=== PATIENT | female | born 1950 | race Two or more races ===

== ENCOUNTER 2024-10-06 15:26 | Inpatient (IN) | payer OTHER ==
[~2024-10-06] VITALS: Ht 165.1 cm; Wt 80.5 kg
--- NOTE | 2024-10-06 15:47 | ED.PDOC ---
GI ASSESSMENT HPI Comments 74 year old female with history of hypertension, hypothyroid and dementia BIBA, presents to the ED with chief complaint of N/V/D. Patient reports that she has been experiencing diarrhea for the past 2 weeks along with associated nausea and vomiting today while at the hair salon. Patient states she felt extremely weak while at the hair salon and had to put her head down. Salon staff called 911. EMS states that the patient's HR was noted to be 42 and BP 102/61, however, Fire Dept decided to externally pace the patient, which the patient stated was causing chest pain, however patient states she did not have chest pain prior to being paced. Patient notes that for the past 2 hours she has had generalized weakness. Patient denies any hematemesis, rectal bleeding, chest pain once external pacing was discontinued, SOB, fever, chills, dysuria, or hematuria. Chief Complaint: Nausea/Vomiting Time Seen by MD: 15:46 Reviewed Notes: Nurses Notes, Medications, Allergies Allergies: Coded Allergies: NO KNOWN ALLERGIES (Unverified , 10/06/24) Information Source: Patient, Emergency Med Personnel Mode of Arrival: EMS Timing: Days Duration: Since onset Prehospital treatment: None Quality: None Vomitus: Watery Stool: Watery Severity: Moderate Recent: None Recent Hx of: None Pain Location: None Associated sign and symptoms: Nausea, Vomiting, Diarrhea Past Medical History PAST MEDICAL HISTORY: Dementia, Depression, HTN, Thyroid Surgical History: Cholecystectomy Surgical History (Other): Lt arm surgery INSPECTOR PROCESS History: Denies all INSPECTOR PROCESS Hx Family History Family History: Reviewed,noncontributory to illness Social History Smoker: Non-Smoker Alcohol: Denies ETOH Use Drugs: Denies Drug Use Lives In: Home Constitutional: reports: weakness; denies: chills, diaphoresis, fatigue, fever, malaise, sweats, others EENTM: denies: blurred vision, double vision, ear bleeding, ear discharge, ear drainage, ear pain, ear ringing, eye pain, eye redness, hearing loss, mouth pain, mouth swelling, nasal discharge, nose bleeding, nose congestion, nose pain, photophobia, tearing, throat pain, throat swelling, voice changes, others Respiratory: denies: cough, hemoptysis, orthopnea, SOB at rest, shortness of breath, SOB with excertion, stridor, wheezing, others Cardiovascular: denies: chest pain, dizzy spells, diaphoresis, Dyspnea on exertion, edema, irregular heart beat, left arm pain, lightheadedness, palpitations, PND, syncope, others Gastrointestinal: reports: diarrhea, nausea, vomiting; denies: abdomen distended, abdominal pain, blood streaked bowels, constipated, dysphagia, difficulty swallowing, hematemesis, melena, poor appetite, poor fluid intake, rectal bleeding, rectal pain, others Genitourinary: denies: abnormal vagina bleeding, burning, dyspareunia, dysuria, flank pain, frequency, hematuria, incontinence, pain, , vagina discharge, urgency, others Neurological: denies: dizziness, fainting, headache, left sided numbness, left sided weakness, numbness, paresthesia, pre-existing deficit, right sided numbness, right sided weakness, seizure, speech problems, tingling, tremors, weakness, others Musculoskeletal: denies: back pain, gout, joint pain, joint swelling, muscle pain, muscle stiffness, neck pain, others Integumetry: denies: bruises, change in color, change in hair/nails, dryness, laceration, lesions, lumps, rash, wounds, others Allergic/Immunocompromised: denies: Difficulty Healing, Frequent Infections, Hives, Itching, others Hematologic/Lymphatic: denies: anemia, blood clots, easy bleeding, easy bruising, swollen glands, others Endocrine: denies: excessive hunger, excessive sweating, excessive thirst, excessive urination, flushing, intolerance to cold, intolerance to heat, unexplained weight gain, unexplained weight loss, others Psychiatric: denies: anxiety, bipolar disorder, depression, hopeless, panic disorder, schizophrenia, sleepless, suicidal, others All Other Systems: Reviewed and Negative Physical Exam General Appearance: Other (Ill-appearing) HEENT: Other (Pupils and face symmetric. Dry mucous membranes.) Neck: Full Range of Motion, Normal Inspection Respiratory: Lungs Clear, No Accessory Muscle Use, No Respiratory Distress, Normal Breath Sounds Cardiovascular: Bradycardia, No Edema, No JVD Breast Exam: Deferred Gastrointestinal: Non Tender, Soft Genitalia: Deferred Pelvic: Deferred Rectal: Deferred Extremities: Normal inspection, Normal range of motion, Non-tender, No pedal edema Neurologic: Alert (Oriented x4. Appropriately conversant.), Other (Moves all extremities.) Cerebellar Function: NOT DONE Reflexes: NOT DONE Skin: Dry, Pallor, Other (Cool) Lymphatic: NOT DONE EKG EKG : Comments Sinus rhythm, rate 61, normal [place] interval, QRS prolonged at 131, QTC prolonged at 490, normal axis, possible incomplete right bundle-branch block, nonspecific T change. Was a procedure done? Was a procedure done?: No GI differential Dx Differential Diagnosis: Angina/RI, Diverticular disease, Gastritis/PUD, Gastroenteritis, Inflammatory BD, Ischemic Bowel, UTI, Dehydration, Electrolyte Imbalance, Food Poisoning, Bacterial, Viral, Hypovolemia, Renal Failure, Other (arrythmia, among others) X-Ray, Labs, Meds, VS Vital Signs Date Time Temp Pulse Resp B/P (MAP) Pulse Ox O2 Delivery O2 Flow Rate FiO2 10/06/24 20:29 61 10/06/24 20:00 69 10/06/24 20:00 97.9 64 19 127/73 (91) 93 97.9 10/06/24 19:00 47 18 96 Room Air* 0 21 10/06/24 18:00 64 25 139/64 (89) 95 10/06/24 15:58 47 16 103/61 (75) 93 10/06/24 15:58 47 16 93 Room Air* 0 21 10/06/24 15:39 98.9 43 16 106/66 (79) 98 98.9 Lab Test 10/06/24 18:44 10/06/24 18:03 10/06/24 16:53 Range/Units Troponin I High Sensitivity 5 5 </=34 ng/L Urine Color Colorless Yellow Urine Clarity Clear Clear Urine pH 7.0 5.0-9.0 Urine Specific Transfer 1.008 1.001-1.035 Urine Protein Negative Negative Urine Ketones Negative Negative Urine Blood Negative Negative /uL Urine Nitrite Negative Negative Urine Bilirubin Negative Negative Urine Urobilinogen Normal Negative mg/dL Urine Leukocyte Esterase Negative Negative /uL Urine RBC 1 0 - 4 /hpf Urine Microscopic WBC 5 0-5 /HPF Urine Squamous Epithelial Cells None seen <5 /hpf Urine Bacteria None seen None Seen /hpf Urine Glucose Normal Normal mg/dL White Blood Count 6.0 4.4-10.8 10^3/uL Red Blood Count 4.57 4.0-5.20 10^6/uL Hemoglobin 14.1 12.2-16.2 g/dL Hematocrit 41.7 36.0-46.0 % Mean Corpuscular Volume 91.1 80.0-100.0 fL Mean Corpuscular Hemoglobin 30.8 28.0-32.0 pg Mean Corpuscular Hemoglobin Concent 33.8 32.0-36.0 g/dL Red Cell Distribution Width 13.4 11.8-14.3 % Platelet Count 235 140-450 10^3/uL Mean Platelet Volume 8.0 6.9-10.8 fL Neutrophils (%) (Auto) 81.3 H 37.0-80.0 % Lymphocytes (%) (Auto) 12.1 10.0-50.0 % Monocytes (%) (Auto) 5.3 0.0-12.0 % Eosinophils (%) (Auto) 0.9 0.0-7.0 % Basophils (%) (Auto) 0.4 0.0-2.0 % Neutrophils # (Auto) 4.9 1.6-8.6 10 ^3/uL Lymphocytes # (Auto) 0.7 0.4-5.4 10 ^3/uL Monocytes # (Auto) 0.3 0-1.3 10 ^3/uL Eosinophils # (Auto) 0.1 0-0.8 10 ^3/uL Basophils # (Auto) 0 0-0.2 10 ^3/uL Nucleated Red Blood Cells 0.1 % Sodium Level 139 136-145 mmol/L Potassium Level 3.2 L 3.5-5.1 mmol/L Chloride Level 102 98-107 mmol/L Carbon Dioxide Level 27 20-31 mmol/L Anion Gap 10 5-15 Blood Urea Nitrogen 20 9-23 mg/dL Creatinine 1.32 H 0.550-1.02 mg/dL Glomerular Filtration Rate Calc 43 >90 mL/min BUN/Creatinine Ratio 15.2 10.0-20.0 Serum Glucose 89 74-106 mg/dL Calcium Level 9.6 8.7-10.4 mg/dL Total Bilirubin 0.5 0.2-1.0 mg/dL Aspartate Amino Transferase (AST) 20 13-40 U/L Alanine Aminotransferase (ALT) 20 7-40 U/L Alkaline Phosphatase 84 46-116 U/L Total Protein 7.1 5.7-8.2 g/dL Albumin 4.6 3.2-4.8 g/dL Current Medications Medications (Trade) Dose Ordered Sig/Merary Route Start Time Stop Time Status Last Admin Sodium Chloride 1,000 ml @ 1,000 mls/hr Q1H ONCE IV 10/06/24 15:45 10/06/24 16:44 DC 10/06/24 16:53 Ondansetron HCl (Zofran) 4 mg ONCE ONCE IV 10/06/24 15:45 10/06/24 15:53 DC 10/06/24 16:53 Pantoprazole Sodium (Protonix) 40 mg ONCE ONCE IV 10/06/24 15:45 10/06/24 15:53 DC 10/06/24 16:53 Acetaminophen (Tylenol Tablet) 650 mg ONCE ONCE PO 10/06/24 17:15 10/06/24 17:16 DC 10/06/24 17:19 CT Abd/Pel: 1. Gallbladder has been surgically removed. 2. 2 cm cyst left kidney 3. No nephrolithiasis or hydronephrosis 4. No CT findings of bowel obstruction Chest XR: IMPRESSION: No acute intrathoracic abnormality. X-Ray, Labs, Meds, VS Comment Blood pressure is 139/65 74-year-old female with a history of hypertension, dementia and thyroid disease brought in by EMS complaining of diarrhea for 2 weeks, nausea, vomiting and generalized weakness today, and found to be bradycardic by EMS Vitals remarkable for heart rate 43 Exam remarkable for pallor and general ill appearance Rhythm strip independently interpreted by me: Sinus rhythm, rate 43, no ectopy. Chest x-ray and CT abdomen and pelvis unremarkable CBC unremarkable, metabolic panel remarkable for potassium 3.2, creatinine 1.32, UA unremarkable, troponin negative Patient treated with the following in the ED: 1 L 0.9 normal saline IV bolus, Zofran 4 mg IV, Protonix 40 mg IV, Tylenol 650 mg p.o. for headache, potassium effervescent 50 mEq p.o. On re-evaluation, heart rate is 64 and blood pressure is 139/64. Patient states she feels somewhat better. Plan is to admit the patient for IV hydration, emesis control and Cardiology evaluation. Time of 1ST Reevaluation: 16:46 Reevaluation 1ST: Improved Patient Education/Counseling: Diagnosis, Treatment Family Education/Counseling: No Family Present Additional Information -Reviewed patient's previous visit(s): None - The following tests were ordered, and results were reviewed by me: CBC, CMP, Troponin, EKG, CT Abd/Pel, CXR - Additional information was gathered from interviewing the following independe nt Historian: EMS - I reviewed and agreed with the following test results read by other provider: CT Abd/Pel, CXR - I discussed treatments and results with medical personnel and: patient Comprehensive systems review obtained and negative except for what is stated in the HPI. Departure 1 Departure Time of Disposition: 19:07 Impression: Primary Impression: Vomiting and diarrhea Additional Impressions: Hypokalemia Dehydration Symptomatic bradycardia Disposition: ADMITTED INPATIENT Admit to: Tele Condition: Guarded Critical Care Note Critical Care Time?: No Stability Stability form required: No Heart Score Heart Score: Heart Score Response (Comments) Value History N/A 0 EKG N/A 0 Age N/A 0 Risk Factors N/A 0 Troponin N/A 0 Total 0 I personally scribed for BHAVYA POZO MD ([email or web address]) on 10/06/24 at 15:47. Electronically submitted by Deven Garcia ([email or web address]). I personally scribed for BHAVYA POZO MD ([email or web address]) on 10/06/24 at 15:51. Electronically submitted by Deven Garcia ([email or web address]). I personally scribed for BHAVYA POZO MD ([email or web address]) on 10/06/24 at 17:17. Electronically submitted by Deven Garcia ([email or web address]). BHAVYA POZO MD Oct 06, 2024 15:47
[2024-10-06 15:58] VITALS: PULSE 47; RESP 16; O2SAT 93
--- NOTE | 2024-10-06 16:49 | DVH ---
Exam: CT CT AB PEL WO CON-NO ORAL OR IV History: n/v/d Comparison Study: None available at time of dictation. TECHNIQUE: Multidetector CT of the abdomen was performed from lung bases to pubic symphysis. Imaging was performed without IV contrast. Axial, coronal and sagittal multiplanar reformats were obtained fr om the axial data set by the technologist. Radiation Dose Information: CT Dose: CTDI volume is 8.86 mGy. Dose-length product is 456.98 mGy*cm FINDINGS: Evaluation of solid organs is limited due to lack of intravenous contrast use. Findings: Lung Bases: No acute or significant lung base finding. Normal heart size. No pleural or pericardial effusion. Liver: The liver is normal in size. No focal lesions. Gallbladder and Biliary Tree: Gallbladder has been surgically removed. Spleen: Unremarkable Pancreas: The pancreas is grossly normal in appearance. Adrenal Glands: Unremarkable Kidneys: Kidneys are grossly normal without calculi or hydronephrosis. 2.2 cm cyst cortex left kidney Bladder: Grossly unremarkable for degree of distention. Bowel: The stomach is grossly normal in appearance. Small bowel and colon are normal in caliber and d istribution. The appendix is not visualized; however, no secondary findings of acute appendicitis id entified. Ascites: Absent Lymphadenopathy: No mesenteric, retroperitoneal or periportal lymphadenopathy. Abdominal Wall and Mesentery: Unremarkable. Vasculature: The visualized abdominal aorta is normal in size and caliber. Evaluation of abdominal a nd pelvic vessels is limited due to lack of intravenous contrast. Pelvic Organs: Unremarkable Musculoskeletal: No aggressive focal bony lesions, acute fractures or dislocation. Soft tissues: Unremarkable IMPRESSION: 1. Gallbladder has been surgically removed. 2. 2 cm cyst left kidney 3. No nephrolithiasis or hydronephrosis 4. No CT findings of bowel obstruction Radiation optimization: All CT scans at this facility use at least one of these dose optimization te chniques: automated exposure control mA and/or kV adjustment per patient size (includes targeted exa ms where dose is matched to clinical indication) or iterative reconstruction.
[2024-10-06] MEDS: SODIUM CHLORIDE 0.9% 1,000 ML IV ONE (16:53)
[2024-10-06] MEDS: PANTOPRAZOLE 40 MG/10 ML VIAL INJ IV ONE (16:53)
[2024-10-06] MEDS: ONDANSETRON HCL 4 MG/2 ML VIAL IV ONE (16:53)
--- NOTE | 2024-10-06 17:00 | DVH ---
XY CHEST PORTABLE, HISTORY: bradycardia COMPARISON: None None TECHNICAL DATA: 1 view of the chest was obtained. FINDINGS: Lines and tubes: None Cardiomediastinal silhouette: normal Pulmonary vasculature: normal Lung expansion: normal Lung airspace: normal Lung interstitium: normal Pleura: normal Pneumothorax: no Bones: Unremarkable Other: no IMPRESSION: No acute intrathoracic abnormality.
[2024-10-06 17:12] LABS: Basophils # (auto) 0 10 ^3/uL (0-0.2); Basophils % (auto) 0.4 % (0.0-2.0); Eosinophils # (auto) 0.1 10 ^3/uL (0-0.8); Eosinophils % (auto) 0.9 % (0.0-7.0); Hematocrit 41.7 % (36.0-46.0); Hemoglobin 14.1 g/dL (12.2-16.2); Lymphocytes # (auto) 0.7 10 ^3/uL (0.4-5.4); Lymphocytes % (auto) 12.1 % (10.0-50.0); Mean Corpuscular Hemoglobin 30.8 pg (28.0-32.0); Mean Corpuscular Hgb Conc. 33.8 g/dL (32.0-36.0); Mean Corpuscular Volume 91.1 fL (80.0-100.0); Monocytes # (auto) 0.3 10 ^3/uL (0-1.3); Monocytes % (auto) 5.3 % (0.0-12.0); Neutrophils # (auto) 4.9 10 ^3/uL (1.6-8.6); Neutrophils % (auto) 81.3 % (37.0-80.0); Nucleated Red Blood Cells % 0.1 %; Platelet Count (auto) 235 10^3/uL (140-450); Red Blood Cells 4.57 10^6/uL (4.0-5.20); Red Cell Distribution Width 13.4 % (11.8-14.3)
[2024-10-06] MEDS: ACETAMINOPHEN 325 MG TAB PO ONE (17:19)
[2024-10-06 17:46] LABS: Alanine Aminotransferase 20 U/L (7-40); Albumin 4.6 g/dL (3.2-4.8); Alkaline Phosphatase 84 U/L (46-116); Anion Gap 10 (5-15); Aspartate Aminotransferase 20 U/L (13-40); BUN/Creatinine Ratio 15.2 (10.0-20.0); Blood Urea Nitrogen 20 mg/dL (9-23); Calcium 9.6 mg/dL (8.7-10.4); Carbon Dioxide 27 mmol/L (20-31); Chloride 102 mmol/L (98-107); Glucose 89 mg/dL (74-106); Sodium 139 mmol/L (136-145); Total Protein 7.1 g/dL (5.7-8.2)
[2024-10-06 17:47] LABS: Bilirubin, Total 0.5 mg/dL (0.2-1.0)
[2024-10-06 17:53] LABS: Potassium 3.2 mmol/L (3.5-5.1)
[2024-10-06 18:18] LABS: Urine Bacteria None Seen /hpf (None Seen)
[2024-10-06 18:31] LABS: Urine Blood Negative /uL (Negative); Urine Clarity Clear (Clear); Urine Color Colorless (Yellow); Urine Protein, UAD Negative (Negative); Urine Specific Gravity 1.008 (1.001-1.035); Urine Squamous Epithelial Cell None Seen /hpf (<5); Urine Urobilinogen Normal (Negative)
[2024-10-06 18:48] LABS: Urine WBC 5 /HPF (0-5)
[2024-10-06 19:00] VITALS: PULSE 47; RESP 18; O2SAT 96
[2024-10-06] MEDS: POTASSIUM EFFERVESENT TAB 25 MEQ PO ONE (21:42)
[2024-10-06] MEDS ORDERED: MORPHINE SULFATE INJ 2 MG/ml SYRG IV PRN (22:00)
[2024-10-06] MEDS ORDERED: NITROGLYCERIN 0.4 MG SL TAB SL PRN (22:00)
--- NOTE | 2024-10-06 22:09 | DVHHP2 ---
History of Present Illness Reason for Visit: Syncope History of Present Illness 74-year-old female presents for evaluation of syncopal episode. Patient reports being at the hair salon when she had multiple episodes of vomiting. Patient subsequently had a syncopal episode. When EMS arrived she was bradycardic and was externally paced on her way to the emergency department. Patient is currently in normal sinus rhythm between 60-70 beats per minute. She soft the external pacemaker. Denies chest pain or palpitations. No headache. No shortness a breath. Patient is not nauseous at the moment. Past Medical History Hypothyroid, hypertension, dementia, depression Past Surgical History Cholecystectomy Family History Noncontributory Smoke: No ALCOHOL: none Drugs: None Lives: with Family Review of Systems Review of Systems Review of systems are currently negative otherwise addressed in HPI. Allergies: Coded Allergies: NO KNOWN ALLERGIES (Unverified , 10/06/24) Exam Vital Signs Vital Signs Date Time Temp Pulse Resp B/P (MAP) Pulse Ox O2 Delivery O2 Flow Rate FiO2 10/06/24 20:29 61 10/06/24 20:00 97.9 19 127/73 (91) 93 97.9 10/06/24 19:00 Room Air* 0 21 Exam Gen: 74-year-old female in no apparent distress Skin: Warm, dry, normal color and texture, no rash. HEENT: Normocephalic atraumatic, mucous membranes moist and pink. Neck: Cervical and supraclavicular nodes normal without enlargement, trachea is midline, thyroid gland is normal without masses. Pulmonary: Clear to auscultation and percussion bilaterally. Cardiac: Regular rate and rhythm. No murmur Abdomen: Soft, nontender, nondistended, bowel sounds present all 4 quadrants, no guarding, no rigidity, no organomegaly. Extremities: No cyanosis, clubbing, no edema Neuro: Cranial nerves II through XII grossly intact, normal affect and speech, no focal motor deficits. Labs/Xrays ORDERING PHYSICIAN: BHAVYA POZO MD PROCEDURE(s): ABPL - CT AB PEL WO CON-NO ORAL OR IV REASON: n/v/d ORDER NUMBER(s): [id number], ACCESSION NUMBER(s): [id number] Exam: CT CT AB PEL WO CON-NO ORAL OR IV History: n/v/d Comparison Study: None available at time of dictation. TECHNIQUE: Multidetector CT of the abdomen was performed from lung bases to pubic symphysis. Imaging was performed without IV contrast. Axial, coronal and sagittal multiplanar reformats were obtained from the axial data set by the technologist. Radiation Dose Information: CT Dose: CTDI volume is 8.86 mGy. Dose-length product is 456.98 mGy*cm FINDINGS: Evaluation of solid organs is limited due to lack of intravenous contrast use. Findings: Lung Bases: No acute or significant lung base finding. Normal heart size. No pleural or pericardial effusion. Liver: The liver is normal in size. No focal lesions. Gallbladder and Biliary Tree: Gallbladder has been surgically removed. Spleen: Unremarkable Pancreas: The pancreas is grossly normal in appearance. Adrenal Glands: Unremarkable Kidneys: Kidneys are grossly normal without calculi or hydronephrosis. 2.2 cm cyst cortex left kidney Bladder: Grossly unremarkable for degree of distention. Bowel: The stomach is grossly normal in appearance. Small bowel and colon are normal in caliber and distribution. The appendix is not visualized; however, no secondary findings of acute appendicitis identified. Ascites: Absent Lymphadenopathy: No mesenteric, retroperitoneal or periportal lymphadenopathy. Abdominal Wall and Mesentery: Unremarkable. Vasculature: The visualized abdominal aorta is normal in size and caliber. Evaluation of abdominal and pelvic vessels is limited due to lack of intravenous contrast. Pelvic Organs: Unremarkable Musculoskeletal: No aggressive focal bony lesions, acute fractures or dislocation. Soft tissues: Unremarkable IMPRESSION: 1. Gallbladder has been surgically removed. 2. 2 cm cyst left kidney 3. No nephrolithiasis or hydronephrosis 4. No CT findings of bowel obstruction Radiation optimization: All CT scans at this facility use at least one of these dose optimization techniques: automated exposure control mA and/or kV adjustment per patient size (includes targeted exams where dose is matched to clinical indication) or iterative reconstruction. RING PHYSICIAN: BHAVYA POZO MD PROCEDURE(s): CXRP - CHEST PORTABLE REASON: bradycardia ORDER NUMBER(s): [id number], ACCESSION NUMBER(s): [id number] XY CHEST PORTABLE, HISTORY: bradycardia COMPARISON: None None TECHNICAL DATA: 1 view of the chest was obtained. FINDINGS: Lines and tubes: None Cardiomediastinal silhouette: normal Pulmonary vasculature: normal Lung expansion: normal Lung airspace: normal Lung interstitium: normal Pleura: normal Pneumothorax: no Bones: Unremarkable Other: no IMPRESSION: No acute intrathoracic abnormality. ATED BY: KASH CAROLINA MD Labs Test 10/06/24 18:44 10/06/24 18:03 10/06/24 16:53 Range/Units Troponin I High Sensitivity 5 </=34 ng/L Urine Color Colorless Yellow Urine Clarity Clear Clear Urine pH 7.0 5.0-9.0 Urine Specific [place] 1.008 1.001-1.035 Urine Protein Negative Negative Urine Ketones Negative Negative Urine Blood Negative Negative /uL Urine Nitrite Negative Negative Urine Bilirubin Negative Negative Urine Urobilinogen Normal Negative mg/dL Urine Leukocyte Esterase Negative Negative /uL Urine RBC 1 0 - 4 /hpf Urine Microscopic WBC 5 0-5 /HPF Urine Squamous Epithelial Cells None seen <5 /hpf Urine Bacteria None seen None Seen /hpf Urine Glucose Normal Normal mg/dL White Blood Count 6.0 4.4-10.8 10^3/uL Red Blood Count 4.57 4.0-5.20 10^6/uL Hemoglobin 14.1 12.2-16.2 g/dL Hematocrit 41.7 36.0-46.0 % Mean Corpuscular Volume 91.1 80.0-100.0 fL Mean Corpuscular Hemoglobin 30.8 28.0-32.0 pg Mean Corpuscular Hemoglobin Concent 33.8 32.0-36.0 g/dL Red Cell Distribution Width 13.4 11.8-14.3 % Platelet Count 235 140-450 10^3/uL Mean Platelet Volume 8.0 6.9-10.8 fL Neutrophils (%) (Auto) 81.3 H 37.0-80.0 % Lymphocytes (%) (Auto) 12.1 10.0-50.0 % Monocytes (%) (Auto) 5.3 0.0-12.0 % Eosinophils (%) (Auto) 0.9 0.0-7.0 % Basophils (%) (Auto) 0.4 0.0-2.0 % Neutrophils # (Auto) 4.9 1.6-8.6 10 ^3/uL Lymphocytes # (Auto) 0.7 0.4-5.4 10 ^3/uL Monocytes # (Auto) 0.3 0-1.3 10 ^3/uL Eosinophils # (Auto) 0.1 0-0.8 10 ^3/uL Basophils # (Auto) 0 0-0.2 10 ^3/uL Nucleated Red Blood Cells 0.1 % Sodium Level 139 136-145 mmol/L Potassium Level 3.2 L 3.5-5.1 mmol/L Chloride Level 102 98-107 mmol/L Carbon Dioxide Level 27 20-31 mmol/L Anion Gap 10 5-15 Blood Urea Nitrogen 20 9-23 mg/dL Creatinine 1.32 H 0.550-1.02 mg/dL Glomerular Filtration Rate Calc 43 >90 mL/min BUN/Creatinine Ratio 15.2 10.0-20.0 Serum Glucose 89 74-106 mg/dL Calcium Level 9.6 8.7-10.4 mg/dL Total Bilirubin 0.5 0.2-1.0 mg/dL Aspartate Amino Transferase (AST) 20 13-40 U/L Alanine Aminotransferase (ALT) 20 7-40 U/L Alkaline Phosphatase 84 46-116 U/L Total Protein 7.1 5.7-8.2 g/dL Albumin 4.6 3.2-4.8 g/dL Assessment/Plan Assessment/Plan Assessment Symptomatic bradycardia,? Vasovagal Syncope Hypertension Dementia Electrolyte imbalance Plan Admit the patient to telemetry to the hospitalist Echocardiogram pending Replete electrolytes Resume home medications Continue treatment per orders. Plan discussed with: Patient My Orders Orders - JACQUIE JAEGER AGACNP Procedure Category Date Status Time Hydrochlorothiazide PHA 10/07/24 Transmitted Tablet (Hydrochlorot 10:00 Levothyroxine Tablet PHA 10/07/24 Transmitted (Synthroid Tablet) 06:00 Thyroid Stimulating LAB 10/06/24 Transmitted Hormone 22:00 Memantine Tablet PHA 10/07/24 Transmitted (Namenda Tablet) 10:00 Donepezil Tablet PHA 10/06/24 Transmitted (Aricept Tablet) 22:00 Pantoprazole Tablet PHA 10/07/24 Transmitted (Protonix Tablet) 06:00 Admit ADMIT 10/06/24 Transmitted 22:00 Ondansetron Hcl PHA 10/06/24 Transmitted (Zofran) 22:00 Enoxaparin Sodium PHA 10/07/24 Transmitted (Lovenox) 10:00 Cardiac DIET 10/07/24 Transmitted Diet-2gna,Lofat,Lochol Breakfast Echo 2d Mode Cardiac US 10/06/24 Transmitted DOP 22:00 Condition: Fair [facility] 10/06/24 Transmitted 22:00 Acetaminophen Tablet PHA 10/06/24 Transmitted (Tylenol Tablet) 22:00 Bedrest With Bathroom [facility] 10/06/24 Transmitted Privileg 22:00 Nitroglycerin PHA 10/06/24 Transmitted Sublingual (Ntrostat 22:00 Morphine Sulfate PHA 10/06/24 Transmitted Injection 22:00 Stat Ekg For Chest [facility] 10/06/24 Transmitted Pain 22:00 Notify Of Changes [facility] 10/06/24 Transmitted From Base 22:00 Telephone Answerer For [facility] 10/06/24 Transmitted 24 Hours 22:00 Emergency Dysrhythmia [facility] 10/06/24 Transmitted Protocol 22:00 Rhythm Strips Once [facility] 10/06/24 Transmitted Every Shift 22:00 Oxygen By Nasal RT 10/06/24 Transmitted Cannula 22:00 Basic Metabolic Panel LAB 10/07/24 Verified 04:00 Date of Service: Oct 06, 2024 Billing Provider: JACQUIE JAEGER Common Visit Codes: [id number] INP/OBS CARE (HIGH) JACQUIE JAEGER Oct 06, 2024 22:09
[2024-10-06] MEDS: DONEPEZIL HYDROCHLORIDE 5 MG TAB PO SCH (22:56)
[2024-10-07] MEDS: ACETAMINOPHEN 325 MG TAB PO PRN (01:04)
[2024-10-07] MEDS: ONDANSETRON HCL 4 MG/2 ML VIAL IV PRN (01:09)
[2024-10-07 05:41] LABS: Chloride 106 mmol/L (98-107); Potassium 4.1 mmol/L (3.5-5.1); Sodium 142 mmol/L (136-145)
[2024-10-07 05:42] LABS: Anion Gap 7 (5-15); Carbon Dioxide 29 mmol/L (20-31)
[2024-10-07 05:47] LABS: BUN/Creatinine Ratio 15.7 (10.0-20.0); Blood Urea Nitrogen 19 mg/dL (9-23); Glucose 98 mg/dL (74-106)
[2024-10-07] MEDS: PANTOPRAZOLE 40 MG TAB PO SCH (06:06)
[2024-10-07] MEDS: LEVOTHYROXINE SODIUM 50 MCG TAB PO SCH (06:13)
[2024-10-07 08:19] VITALS: PULSE 62; RESP 14; O2SAT 94
[2024-10-07] MEDS: hydroCHLOROthiazide 25 MG TAB PO SCH (11:16)
[2024-10-07] MEDS: MEMANTINE HCL 5 MG TAB PO SCH (11:16)
[2024-10-07] MEDS: ENOXAPARIN SOD 40 MG/0.4 ML SYRINGE SC SCH (11:17)
--- NOTE | 2024-10-07 14:01 | DVHSR ---
APPROVED REPORT EXAM: Two-dimensional and M-mode echocardiogram with Doppler and color Doppler. Blood Pressure: 129/61 mmHg INDICATION bradycardia RISK FACTORS Height: 65, Weight: 175 DIMENSIONS LVDd4.1 (3.8-5.7cm)LA (2D)4.8 (1.9-4.0cm)Aortic Root3.5 (2.0-3.7cm) LVDs2.8 (2.5-4.0cm)LA (MM) (1.9-4.0cm)Aortic Cusp Exc1.7 (1.5-2.0cm) EF (%) 60.0 (55-70%)Rt. Atrium3.8 (1.9-4.0cm)Asc. Aorta cm IVSd1.3 (0.7-1.1cm)RV (D) (1.8-2.4cm) PWd1.3 (0.7-1.1cm) Mitral Valve MitralMitral Stenosis E wave0.87m/sMV Mean GR.mmHg A wave0.86m/sMV Peak GR.104mmHg E/A ratio1.02D MVAcm2 DECEL [id number] 1/2 [id number] IVRTmsDop MVA2.62cm2 Aortic Valve Aortic ValveAortic Stenosis V11.40m/Kartik Mean GR.6mmHg V21.74m/Kartik Peak GR.12mmHg LVOT Diameter2.0 (1.8-2.4cm)Doppler AVA2.53cm2 AI P 1/2 Shcl983.51ms Pulmonic Valve V20.93m/s Tricuspid Valve TR Velocity2.45m/s [id number] Conclusion MILD LVH AND MILD LV DIASTOLIC DYSFUNCTION LV EF IS 65% AND IS NORMAL MODERATELY DILATED LA NORMAL VALVES NO EFFUSION NORMAL RV FUNCTION AND SIZE
--- NOTE | 2024-10-07 14:28 | DVHPNRES ---
Progress Note Date Seen: Oct 07, 2024 Resident Creating Document: SABAS MIRAMONTES RESIDENT Has the PT tested + for MRSA If YES, has PT been informed?: No Medical Necessity Reason Pt with a Central, PICC or Fol: No Subjective Review of Systems 74 year old female with history of hypertension, hypothyroid and dementia BIBA, presents to the ED with chief complaint of nausea, vomiting and diarrhea. Patient reports that she has been experiencing diarrhea for the past 2 weeks along with associated nausea and vomiting yesterday while at the [employer]. Patient states she felt extremely weak while at the [employer] and had to put her head down. Salon staff called 911. EMS states that the patient's HR was noted to be 42 and BP 102/61, however, Fire Dept decided to externally pace the patient, which the patient stated was causing chest pain, however patient states she did not have chest pain prior to being paced. she had generalized weakness. Patient denies any hematemesis, rectal bleeding, chest pain once external pacing was discontinued, SOB, fever, chills, dysuria, or hematuria. Today seen and examined at bedside, no chest pain, feeling better. ECHO: MILD LVH AND MILD LV DIASTOLIC DYSFUNCTION LV EF IS 65% AND IS NORMAL MODERATELY DILATED LA NORMAL VALVES NO EFFUSION NORMAL RV FUNCTION AND SIZE Objective vital signs Vital Sign Date Time Temp Pulse Resp B/P (MAP) Pulse Ox O2 Delivery O2 Flow Rate FiO2 10/07/24 12:00 52 10/07/24 12:00 17 126/64 (84) 92 10/07/24 10:00 98.1 98.1 10/07/24 08:19 Room Air* 0 21 Total Intake and Output 10/06/24 10/06/24 10/07/24 15:00 23:00 07:00 Intake Total 360 ml Output Total 1 ml Balance 360 ml -1 ml medications Current Medications Medications Dose Ordered Sig/Merary Route Start Time Stop Time Status Last Admin Dose Admin Hydrochlorothiazide 25 mg DAILY PO 10/07/24 10:00 10/07/24 11:16 25 MG Levothyroxine Sodium 125 mcg QAM@0600 PO 10/07/24 06:00 10/07/24 06:13 125 MCG Memantine 10 mg DAILY PO 10/07/24 10:00 10/07/24 11:16 10 MG Donepezil HCl 10 mg HS PO 10/06/24 22:00 10/06/24 22:56 10 MG Pantoprazole Sodium 40 mg DAILY@0600 PO 10/07/24 06:00 10/07/24 06:06 40 MG Ondansetron HCl 4 mg Q4HP PRN IV 10/06/24 22:00 10/07/24 01:09 4 MG Enoxaparin Sodium 40 mg DAILY SC 10/07/24 10:00 10/07/24 11:17 40 MG Acetaminophen 650 mg Q6HP PRN PO 10/06/24 22:00 10/07/24 01:04 650 MG Nitroglycerin 0.4 mg Q5MINP PRN SL 10/06/24 22:00 Morphine Sulfate 2 mg Q30M PRN IV 10/06/24 22:00 Examination HEENT: Pupils and face symmetric. Dry mucous membranes Neck: Full Range of Motion, Normal Inspection Respiratory: Lungs Clear, No Accessory Muscle Use, No Respiratory Distress, Normal Breath Sounds Cardiovascular: normal s1 s2, No Edema, No JVD Gastrointestinal: Non Tender, Soft Extremities: Normal inspection, Normal range of motion, Non-tender, No pedal edema Neurologic: Oriented x4. Appropriately conversant, Moves all extremities laboratory and microbiology Laboratory Tests 10/07/24 05:15 10/06/24 16:53 Test 10/07/24 05:15 Range/Units Serum Glucose 98 74-106 mg/dL Problem List/Assessment/Plan Problem List/Assessment/Plan #Bradycardia, resolved #Presyncope #Hypertensive heart disease with diastolic dysfunction #Hypothyroidism #Mild cognitive dysfunction? #Acute gastroenteritis #Hypokalemia resolved Telemetry Tylenol Donepezol Lovenox 40 mg SC Hctz 25MG daily Levothyroxine 125 mcg Memantine 10 mg PO Protonix PO Potassium PO given Case discussed with Dr Gutierrez Plan discussed with: Patient, Other Date of Service: Oct 07, 2024 Billing Provider: ANTHONY GUTIERREZ DO Common Visit Codes: [id number] INP/OBS CARE(HIGH) SABAS MIRAMONTES RESIDENT Oct 07, 2024 14:28 ANTHONY GUTIERREZ DO Oct 08, 2024 07:36
[2024-10-07] MEDS ORDERED: BUPR-349 PO (18:13)
[2024-10-07] MEDS ORDERED: TRAZ-228 PO (18:19)
[2024-10-07] MEDS ORDERED: LEVO125T7 PO (18:19)
[2024-10-07] MEDS ORDERED: PRAM2.252 PO (18:19)
[2024-10-07] MEDS ORDERED: HYDR25TA4 PO ×2 (18:19)
[2024-10-07] MEDS ORDERED: TOLT2CAP PO (18:19)
[2024-10-07] MEDS ORDERED: [UNRECOGNIZED DRUG - CODE] PO (18:19)
[2024-10-07] MEDS ORDERED: DONE1TAB88 PO (18:19)
[2024-10-07] MEDS ORDERED: IRBE300T43 PO (18:19)
[2024-10-07 20:00] VITALS: PULSE 56; PULSE 59; RESP 15
[2024-10-07 21:00] VITALS: BP 117/69; PULSE 54; RESP 18; TEMP 98.2; O2SAT 94
--- NOTE | 2024-10-07 21:18 | DVHINCON2 ---
Date of service: Oct 07, 2024 Referring Physician West Lehman MD Reason for Consultation Acute kidney injury History of Present Illness Kiesha Rock is a 74-year-old female with a Past Medical History pertinent for Hypothyroid, Hypertension, Dementia and Depression who presented to the hospital for evaluation of syncopal episode. Patient states she was at a hair salon when she had multiple episodes of vomiting and subsequently had a syncopal episode. Echocardiogram reported LV EF is 65% and normal; mild LVH and mild LV diastolic dysfunction; moderate dilated LA; no effusion; normal valves. CT Abdomen Pelvis reported gallbladder has been surgically removed; 2 cm cyst left kidney; no nephrolithiasis or hydronephrosis; no CT findings of bowel obstruction. Patient denies any complaints at this time. Reports feeling better. No chest pain, dizziness or shortness of breath. Labs this morning are remarkable for Creatinine 1.21. eGFR 47. Allergies: Coded Allergies: NO KNOWN ALLERGIES (Unverified , 10/06/24) Home Meds Reported Medications Darifenacin Hydrobromide (Darifenacin Hydrobromide) 7.5 Mg Tab, 7.5 MG PO, TAB 10/07/24 Hydrochlorothiazide (Hydrochlorothiazide) 25 Mg Tab, 25 TAB PO DAILY, #30 TAB 5 Refills 10/07/24 Hydrochlorothiazide (Hydrochlorothiazide) 25 Mg Tab, 1 TAB PO DAILY, #30 TAB 5 Refills 10/07/24 Irbesartan (IRBESARTAN) 300 Mg Tab, 300 TAB PO DAILY, #30 TAB 5 Refills 10/07/24 Trazodone Hcl (Trazodone Hcl) 100 Mg Tab, 50 TAB PO QIDACHS, #30 TAB 1 Refill 10/07/24 Levothyroxine Sodium (Levothyroxine Sodium) 125 Mcg Tab, 1 TAB PO DAILY, #30 TAB 5 Refills 10/07/24 Bupropion HCl (Bupropion Hydrochloride) 100 Mg Tab, 150 MG PO BID, TAB 10/07/24 Discontinued Reported Medications Donepezil Hydrochloride (DONEPEZIL HCL) 10 Mg Tab, 1 TAB PO DAILY, #90 TAB 1 Refill 10/07/24 Tolterodine Tartrate (Detrol La) 2 Mg Cap, 2 MG PO, CAP 10/07/24 Pramipexole Dihydrochloride (Pramipexole Dihydrochlori) 2.25 Mg Tab, 0.25 MG PO, TAB 10/07/24 Current Medications Family History: FH: dementia Review of Systems Review of systems are currently negative otherwise addressed in HPI. H&P Exam Vital Signs/I&O Vital Sign Date Time Temp Pulse Resp B/P (MAP) Pulse Ox O2 Delivery O2 Flow Rate FiO2 10/08/24 13:00 98.2 67 17 138/86 (103) 95 98.2 10/08/24 08:00 Room Air* 0 21 Intake and Output 10/07/24 10/08/24 19:00 07:00 Intake Total 300 ml Balance 300 ml Intake Oral 300 ml # Voids 6 Physical Exam Vitals and nursing notes reviewed. Gen: 74-year-old female in no apparent distress HEENT: Normocephalic atraumatic, mucous membranes moist and pink. Neck: Cervical and supraclavicular nodes normal without enlargement,. Pulmonary: Clear to auscultation and percussion bilaterally. Cardiac: Regular rate and rhythm. No murmur Abdomen: Soft, nontender, nondistended, bowel sounds present all 4 quadrants, no guarding, no rigidity, no organomegaly. Extremities: No cyanosis, clubbing, no edema Neuro: Cranial nerves II through XII grossly intact, normal affect and speech, no focal motor deficits. Skin: Warm, dry, normal color and texture, no rash. Labs/Diagnostic Data Labs/Diagnostic Data Laboratory Tests Test 10/08/24 07:22 10/07/24 05:15 10/06/24 18:44 10/06/24 18:03 Range/Units White Blood Count 4.1 #L 4.4-10.8 10^3/uL Red Blood Count 4.20 4.0-5.20 10^6/uL Hemoglobin 13.0 12.2-16.2 g/dL Hematocrit 38.2 36.0-46.0 % Mean Corpuscular Volume 91.1 80.0-100.0 fL Mean Corpuscular Hemoglobin 30.9 28.0-32.0 pg Mean Corpuscular Hemoglobin Concent 33.9 32.0-36.0 g/dL Red Cell Distribution Width 13.5 11.8-14.3 % Platelet Count 200 140-450 10^3/uL Mean Platelet Volume 8.1 6.9-10.8 fL Neutrophils (%) (Auto) 69.2 37.0-80.0 % Lymphocytes (%) (Auto) 20.3 10.0-50.0 % Monocytes (%) (Auto) 7.9 0.0-12.0 % Eosinophils (%) (Auto) 2.1 0.0-7.0 % Basophils (%) (Auto) 0.5 0.0-2.0 % Neutrophils # (Auto) 2.8 1.6-8.6 10 ^3/uL Lymphocytes # (Auto) 0.8 0.4-5.4 10 ^3/uL Monocytes # (Auto) 0.3 0-1.3 10 ^3/uL Eosinophils # (Auto) 0.1 0-0.8 10 ^3/uL Basophils # (Auto) 0 0-0.2 10 ^3/uL Nucleated Red Blood Cells 0.4 % Sodium Level 141 142 136-145 mmol/L Potassium Level 3.9 4.1 3.5-5.1 mmol/L Chloride Level 105 106 98-107 mmol/L Carbon Dioxide Level 30 29 20-31 mmol/L Anion Gap 6 7 5-15 Blood Urea Nitrogen 17 19 9-23 mg/dL Creatinine 1.26 H 1.21 H 0.550-1.02 mg/dL Glomerular Filtration Rate Calc 45 47 >90 mL/min BUN/Creatinine Ratio 13.5 15.7 10.0-20.0 Serum Glucose 106 98 74-106 mg/dL Calcium Level 9.5 9.0 8.7-10.4 mg/dL Total Bilirubin 0.4 0.2-1.0 mg/dL Aspartate Amino Transferase (AST) 15 13-40 U/L Alanine Aminotransferase (ALT) 16 7-40 U/L Alkaline Phosphatase 71 46-116 U/L Total Protein 6.1 5.7-8.2 g/dL Albumin 4.0 3.2-4.8 g/dL Troponin I High Sensitivity 5 </=34 ng/L Thyroid Stimulating Hormone (TSH) 1.68 0.55-4.78 uIU/mL Urine Color Colorless Yellow Urine Clarity Clear Clear Urine pH 7.0 5.0-9.0 Urine Specific [place] 1.008 1.001-1.035 Urine Protein Negative Negative Urine Ketones Negative Negative Urine Blood Negative Negative /uL Urine Nitrite Negative Negative Urine Bilirubin Negative Negative Urine Urobilinogen Normal Negative mg/dL Urine Leukocyte Esterase Negative Negative /uL Urine RBC 1 0 - 4 /hpf Urine Microscopic WBC 5 0-5 /HPF Urine Squamous Epithelial Cells None seen <5 /hpf Urine Bacteria None seen None Seen /hpf Urine Glucose Normal Normal mg/dL Test 10/06/24 16:53 Range/Units White Blood Count 6.0 4.4-10.8 10^3/uL Red Blood Count 4.57 4.0-5.20 10^6/uL Hemoglobin 14.1 12.2-16.2 g/dL Hematocrit 41.7 36.0-46.0 % Mean Corpuscular Volume 91.1 80.0-100.0 fL Mean Corpuscular Hemoglobin 30.8 28.0-32.0 pg Mean Corpuscular Hemoglobin Concent 33.8 32.0-36.0 g/dL Red Cell Distribution Width 13.4 11.8-14.3 % Platelet Count 235 140-450 10^3/uL Mean Platelet Volume 8.0 6.9-10.8 fL Neutrophils (%) (Auto) 81.3 H 37.0-80.0 % Lymphocytes (%) (Auto) 12.1 10.0-50.0 % Monocytes (%) (Auto) 5.3 0.0-12.0 % Eosinophils (%) (Auto) 0.9 0.0-7.0 % Basophils (%) (Auto) 0.4 0.0-2.0 % Neutrophils # (Auto) 4.9 1.6-8.6 10 ^3/uL Lymphocytes # (Auto) 0.7 0.4-5.4 10 ^3/uL Monocytes # (Auto) 0.3 0-1.3 10 ^3/uL Eosinophils # (Auto) 0.1 0-0.8 10 ^3/uL Basophils # (Auto) 0 0-0.2 10 ^3/uL Nucleated Red Blood Cells 0.1 % Sodium Level 139 136-145 mmol/L Potassium Level 3.2 L 3.5-5.1 mmol/L Chloride Level 102 98-107 mmol/L Carbon Dioxide Level 27 20-31 mmol/L Anion Gap 10 5-15 Blood Urea Nitrogen 20 9-23 mg/dL Creatinine 1.32 H 0.550-1.02 mg/dL Glomerular Filtration Rate Calc 43 >90 mL/min BUN/Creatinine Ratio 15.2 10.0-20.0 Serum Glucose 89 74-106 mg/dL Calcium Level 9.6 8.7-10.4 mg/dL Total Bilirubin 0.5 0.2-1.0 mg/dL Aspartate Amino Transferase (AST) 20 13-40 U/L Alanine Aminotransferase (ALT) 20 7-40 U/L Alkaline Phosphatase 84 46-116 U/L Troponin I High Sensitivity 5 </=34 ng/L Total Protein 7.1 5.7-8.2 g/dL Albumin 4.6 3.2-4.8 g/dL Assessment Symptomatic bradycardia Syncope Hypertension Dementia Electrolyte imbalance GUILHERME Plan/Recommendation Agreement with your ongoing assessment and plan of care. Monitor daily labs. Electrolyte replacement prn. Continue home medications as ordered. DVT/GI prophylaxis. Pain management prn. Additional plan as per the hospital course. Plan discussed with: Patient, Other (RN) NISSA DOBBS DO Oct 07, 2024 21:18
[2024-10-08 05:31] VITALS: BP 148/52; PULSE 60; RESP 16; TEMP 97.8; O2SAT 100
[2024-10-08 08:14] LABS: Basophils # (auto) 0 10 ^3/uL (0-0.2); Basophils % (auto) 0.5 % (0.0-2.0); Eosinophils # (auto) 0.1 10 ^3/uL (0-0.8); Eosinophils % (auto) 2.1 % (0.0-7.0); Hematocrit 38.2 % (36.0-46.0); Lymphocytes # (auto) 0.8 10 ^3/uL (0.4-5.4); Lymphocytes % (auto) 20.3 % (10.0-50.0); Mean Corpuscular Hemoglobin 30.9 pg (28.0-32.0); Mean Corpuscular Hgb Conc. 33.9 g/dL (32.0-36.0); Mean Corpuscular Volume 91.1 fL (80.0-100.0); Monocytes # (auto) 0.3 10 ^3/uL (0-1.3); Monocytes % (auto) 7.9 % (0.0-12.0); Neutrophils # (auto) 2.8 10 ^3/uL (1.6-8.6); Neutrophils % (auto) 69.2 % (37.0-80.0); Nucleated Red Blood Cells % 0.4 %; Platelet Count (auto) 200 10^3/uL (140-450); Red Cell Distribution Width 13.5 % (11.8-14.3); White Blood Cell 4.1 10^3/uL (4.4-10.8)
[2024-10-08 08:33] LABS: Alanine Aminotransferase 16 U/L (7-40); Alkaline Phosphatase 71 U/L (46-116); Anion Gap 6 (5-15); BUN/Creatinine Ratio 13.5 (10.0-20.0); Blood Urea Nitrogen 17 mg/dL (9-23); Calcium 9.5 mg/dL (8.7-10.4); Carbon Dioxide 30 mmol/L (20-31); Chloride 105 mmol/L (98-107); Potassium 3.9 mmol/L (3.5-5.1); Sodium 141 mmol/L (136-145); Total Protein 6.1 g/dL (5.7-8.2)
[2024-10-08 08:34] LABS: Aspartate Aminotransferase 15 U/L (13-40)
[2024-10-08 08:35] LABS: Bilirubin, Total 0.4 mg/dL (0.2-1.0)
[2024-10-08 08:52] LABS: Glucose 106 mg/dL (74-106)
[2024-10-08 09:00] VITALS: BP 119/84; PULSE 54; RESP 16; TEMP 98.3; O2SAT 94
--- NOTE | 2024-10-08 10:33 | DVHDSRES ---
Discharge Summary Date of Admission Resident Creating Document: SABAS MIRAMONTES RESIDENT Oct 06, 2024 at 22:00 Date of Discharge: Oct 08, 2024 Admitting Diagnosis #Bradycardia, resolved #Presyncope Labs/Diagnostic Data: Laboratory Results Test 10/08/24 07:22 10/06/24 18:44 10/06/24 18:03 White Blood Count 4.1 10^3/uL (4.4-10.8) Red Blood Count 4.20 10^6/uL (4.0-5.20) Hemoglobin 13.0 g/dL (12.2-16.2) Hematocrit 38.2 % (36.0-46.0) Mean Corpuscular Volume 91.1 fL (80.0-100.0) Mean Corpuscular Hemoglobin 30.9 pg (28.0-32.0) Mean Corpuscular Hemoglobin Concent 33.9 g/dL (32.0-36.0) Red Cell Distribution Width 13.5 % (11.8-14.3) Platelet Count 200 10^3/uL (140-450) Mean Platelet Volume 8.1 fL (6.9-10.8) Neutrophils (%) (Auto) 69.2 % (37.0-80.0) Lymphocytes (%) (Auto) 20.3 % (10.0-50.0) Monocytes (%) (Auto) 7.9 % (0.0-12.0) Eosinophils (%) (Auto) 2.1 % (0.0-7.0) Basophils (%) (Auto) 0.5 % (0.0-2.0) Neutrophils # (Auto) 2.8 10 ^3/uL (1.6-8.6) Lymphocytes # (Auto) 0.8 10 ^3/uL (0.4-5.4) Monocytes # (Auto) 0.3 10 ^3/uL (0-1.3) Eosinophils # (Auto) 0.1 10 ^3/uL (0-0.8) Basophils # (Auto) 0 10 ^3/uL (0-0.2) Nucleated Red Blood Cells 0.4 % Sodium Level 141 mmol/L (136-145) Potassium Level 3.9 mmol/L (3.5-5.1) Chloride Level 105 mmol/L (98-107) Carbon Dioxide Level 30 mmol/L (20-31) Anion Gap 6 (5-15) Blood Urea Nitrogen 17 mg/dL (9-23) Creatinine 1.26 mg/dL (0.550-1.02) Glomerular Filtration Rate Calc 45 mL/min (>90) BUN/Creatinine Ratio 13.5 (10.0-20.0) Serum Glucose 106 mg/dL (74-106) Calcium Level 9.5 mg/dL (8.7-10.4) Total Bilirubin 0.4 mg/dL (0.2-1.0) Aspartate Amino Transferase (AST) 15 U/L (13-40) Alanine Aminotransferase (ALT) 16 U/L (7-40) Alkaline Phosphatase 71 U/L (46-116) Total Protein 6.1 g/dL (5.7-8.2) Albumin 4.0 g/dL (3.2-4.8) Troponin I High Sensitivity 5 ng/L (</=34) Thyroid Stimulating Hormone (TSH) 1.68 uIU/mL (0.55-4.78) Urine Color Colorless (Yellow) Urine Clarity Clear (Clear) Urine pH 7.0 (5.0-9.0) Urine Specific [place] 1.008 (1.001-1.035) Urine Protein Negative (Negative) Urine Ketones Negative (Negative) Urine Blood Negative /uL (Negative) Urine Nitrite Negative (Negative) Urine Bilirubin Negative (Negative) Urine Urobilinogen Normal mg/dL (Negative) Urine Leukocyte Esterase Negative /uL (Negative) Urine RBC 1 /hpf (0 - 4) Urine Microscopic WBC 5 /HPF (0-5) Urine Squamous Epithelial Cells None seen /hpf (<5) Urine Bacteria None seen /hpf (None Seen) Urine Glucose Normal mg/dL (Normal) Other Laboratory Tests 10/08/24 07:22 Brief Hx & Hospital Course: 74 year old female with history of hypertension, hypothyroid and dementia BIBA, presents to the ED with chief complaint of nausea, vomiting and diarrhea. Patient reports that she has been experiencing diarrhea for the past 2 weeks along with associated nausea and vomiting yesterday while at the [employer] salon. Patient states she felt extremely weak while at the hair salon and had to put her head down. Salon staff called 911. EMS states that the patient's HR was noted to be 42 and BP 102/61, however, Fire Dept decided to externally pace the patient, which the patient stated was causing chest pain, however patient states she did not have chest pain prior to being paced. she had generalized weakness. Patient denies any hematemesis, rectal bleeding, chest pain once external pacing was discontinued, SOB, fever, chills, dysuria, or hematuria. Today seen and examined at bedside, no chest pain, feeling better. ECHO: MILD LVH AND MILD LV DIASTOLIC DYSFUNCTION LV EF IS 65% AND IS NORMAL MODERATELY DILATED LA NORMAL VALVES NO EFFUSION NORMAL RV FUNCTION AND SIZE Hospital course: HR in 50- 60s, sinus rhythm., no significant findings in telemetry donepezil was DC due to bradycardia, ECHO findings are normal, no chest pain, no D/N/V during her hospital course, no syncope, no chest pain, patient was DC with alarm signs and recommendations. HEENT: Pupils and face symmetric. Dry mucous membranes Neck: Full Range of Motion, Normal Inspection Respiratory: Lungs Clear, No Accessory Muscle Use, No Respiratory Distress, Normal Breath Sounds Cardiovascular: normal s1 s2, No Edema, No JVD Gastrointestinal: Non Tender, Soft Extremities: Normal inspection, Normal range of motion, Non-tender, No pedal edema Neurologic: Oriented x4. Appropriately conversant, Moves all extremities Case discussed with Dr Burton Operations or Procedures Exam: CT CT AB PEL WO CON-NO ORAL OR IV History: n/v/d Comparison Study: None available at time of dictation. TECHNIQUE: Multidetector CT of the abdomen was performed from lung bases to pubic symphysis. Imaging was performed without IV contrast. Axial, coronal and sagittal multiplanar reformats were obtained from the axial data set by the technologist. Radiation Dose Information: CT Dose: CTDI volume is 8.86 mGy. Dose-length product is 456.98 mGy*cm FINDINGS: Evaluation of solid organs is limited due to lack of intravenous contrast use. Findings: Lung Bases: No acute or significant lung base finding. Normal heart size. No pleural or pericardial effusion. Liver: The liver is normal in size. No focal lesions. Gallbladder and Biliary Tree: Gallbladder has been surgically removed. Spleen: Unremarkable Pancreas: The pancreas is grossly normal in appearance. Adrenal Glands: Unremarkable Kidneys: Kidneys are grossly normal without calculi or hydronephrosis. 2.2 cm cyst cortex left kidney Bladder: Grossly unremarkable for degree of distention. Bowel: The stomach is grossly normal in appearance. Small bowel and colon are normal in caliber and distribution. The appendix is not visualized; however, no secondary findings of acute appendicitis identified. Ascites: Absent Lymphadenopathy: No mesenteric, retroperitoneal or periportal lymphadenopathy. Abdominal Wall and Mesentery: Unremarkable. Vasculature: The visualized abdominal aorta is normal in size and caliber. Evaluation of abdominal and pelvic vessels is limited due to lack of intravenous contrast. Pelvic Organs: Unremarkable Musculoskeletal: No aggressive focal bony lesions, acute fractures or dislocation. Soft tissues: Unremarkable IMPRESSION: 1. Gallbladder has been surgically removed. 2. 2 cm cyst left kidney 3. No nephrolithiasis or hydronephrosis 4. No CT findings of bowel obstruction Condition at Discharge: Stable Final Diagnosis/Problems List #Bradycardia, resolved #Presyncope #Hypertensive heart disease with diastolic dysfunction #Hypothyroidism #Mild cognitive dysfunction? #Acute gastroenteritis #Hypokalemia resolved Discharge Disposition: Home Discharge Instruct/Medications Diet: Cardiac 2g Na,low cholest Activity: Light activity Follow Up/Referral: dc clinic Medications: see prescription, dc donepezil (causes bradycardia) Discharge Statement: "Patient was advised to return to the ER or call 911 if any headaches, dizziness, shortness of breath, chest pain, abdominal pain, bleeding, fevers, or worsening of medical condition. Patient was counseled about treatment plan, medications, possible side effects, patientverbalized understanding. All questions were answered to the best of my ability. This discharge took greater then 30 minutes in planning, reviewing documentation, counseling the patient, and discussing with other team members." ASSESSMENT ASSESSMENT Assessment presyncope bradycardia Date of Service: Oct 08, 2024 Billing Provider: JAMI BURTON MD Common Visit Codes: 36863-HXI/[id number] DISCH DAY >30min SABAS MIRAMONTES RESIDENT Oct 08, 2024 10:33 JAMI BURTON MD Oct 10, 2024 22:22
[2024-10-08 10:52] VITALS: BP 119/84; PULSE 54; RESP 16; TEMP 98.3; O2SAT 94
[2024-10-08 13:00] VITALS: BP 138/86; PULSE 67; RESP 17; TEMP 98.2; O2SAT 95
--- NOTE | 2024-10-08 13:22 | ECG ---
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
--- NOTE | 2024-10-08 14:00 | ECG ---
[facility] Test Date: 2024-10-06 Test Time: 20:29:34 Pat Name: BAR LIU Department: ED Room: 0251T A Gender: F [employer] Attendant: FRANCIS : 1950 Requested By: BHAVYA GRAHAM Order Number: [id number] Reading MD: Loy Sage Measurements Intervals [place] Rate: 61 P: 24 TX: 181 QRS: 20 QRSD: 131 T: 37 QT: 486 QTc: 490 Interpretive Statements Sinus rhythm Nonspecific intraventricular conduction delay ST elevation, consider inferior injury Electronically Signed On 10-10-2024 12:53:05 PDT by Loy Sage Please click the below link to view image of tracing.
--- NOTE | 2024-10-08 20:22 | DVHPN2 ---
Progress Note - Dictate Date Seen: Oct 08, 2024 Has the PT tested + for MRSA If YES, has PT been informed?: No Medical Necessity Reason Pt with a Central, PICC or Fol: No Subjective Patient was seen and evaluated in follow up earlier today. No acute events overnight. Patient reports feeling well. No complaints. Discharge planning in progress. Creatinine 1.26. eGFR 45. BUN wnl. vital signs Vital Sign Date Time Temp Pulse Resp B/P (MAP) Pulse Ox O2 Delivery O2 Flow Rate FiO2 10/08/24 13:00 98.2 67 17 138/86 (103) 95 98.2 10/08/24 08:00 Room Air* 0 21 Total Intake and Output 10/07/24 10/07/24 10/08/24 15:00 23:00 07:00 Intake Total 300 ml Balance 300 ml objective Vitals and nursing notes reviewed. Gen: 74-year-old female in no apparent distress HEENT: Normocephalic atraumatic, mucous membranes moist and pink. Neck: Cervical and supraclavicular nodes normal without enlargement,. Pulmonary: Clear to auscultation and percussion bilaterally. Cardiac: Regular rate and rhythm. No murmur Abdomen: Soft, nontender, nondistended, bowel sounds present all 4 quadrants, no guarding, no rigidity, no organomegaly. Extremities: No cyanosis, clubbing, no edema Neuro: Cranial nerves II through XII grossly intact, normal affect and speech, no focal motor deficits. Skin: Warm, dry, normal color and texture, no rash. laboratory and microbiology Laboratory Tests 10/08/24 07:22 Test 10/08/24 07:22 Range/Units Serum Glucose 106 74-106 mg/dL Problem List Symptomatic bradycardia Syncope Hypertension Dementia Electrolyte imbalance GUILHERME Assessment/Plan DC planning. Cleared for discharge from Nephrology standpoint with outpatient follow up recommended. Plan discussed with: Patient, Other (RN) NISSA DOBBS DO Oct 08, 2024 20:22
== END 2024-10-08 12:44 | disposition home or self-care (01) | DRG 74 ==
LOC: ER 15:26 → EDBD 15:26 → OVERFLOW 22:00 → TELE-EAST 10-07 17:55
PROVIDERS: ADMIT Student in an Organized Health Care Education/Training Program; ATTEND Student in an Organized Health Care Education/Training Program
DX: G90.89 Other disorders of autonomic nervous system (principal); I50.32 Chronic diastolic (congestive) heart failure; N17.9 Acute kidney failure, unspecified; E87.6 Hypokalemia; K52.9 Noninfective gastroenteritis and colitis, unspecified; F03.90 Unspecified dementia, unspecified severity, without behavioral disturbance, psychotic disturbance, mood disturbance, and anxiety; E86.0 Dehydration; E03.9 Hypothyroidism, unspecified; I10 Essential (primary) hypertension; Z90.49 Acquired absence of other specified parts of digestive tract; Z79.899 Other long term (current) drug therapy; R00.1 Bradycardia, unspecified
CPT/HCPCS: 36415; 71045; 74176; 80048; 80053; 81001; 84443; 84484; 85025; 93005; 93306; 96361; 96374; 96375; G0378; J2405; J2470